=== PATIENT | male | born 1955 | race Hispanic/Latino ===

== ENCOUNTER 2020-11-09 12:32 | Emergency (ER) | payer BC, OTHER ==
[2020-11-09 13:32] LABS: BASOPHILS % (AUTO) 0.9 % (0.0-5.0); EOSINOPHILS % (AUTO) 1.6 % (0.0-8.0); HEMATOCRIT 41.7 % (42-54); LYMPHOCYTES % (AUTO) 23.5 % (21.0-51.0); MEAN CORPUSCULAR HEMOGLOBIN 33.2 pg (27.0-33.0); MEAN CORPUSCULAR HGB CONC 34.5 g/dL (32.0-36.0); MEAN CORPUSCULAR VOLUME 96.1 fL (79-99); MONOCYTES % (AUTO) 8.4 % (3.0-13.0); NEUTROPHILS % (AUTO) 64.9 % (40.0-77.0); PLATELET COUNT (AUTO) 234 K/uL (130-400); RED BLOOD CELL COUNT(AUTO) 4.34 MIL/uL (4.50-6.20); WHITE BLOOD COUNT (AUTO) 7.4 K/uL (4.8-10.8)
[2020-11-09 13:50] LABS: CREATININE 0.8 mg/dL (0.5-1.5)
[2020-11-09 13:55] LABS: ALBUMIN 4.2 g/dL (3.5-5.0); BILIRUBIN,TOTAL 0.7 mg/dL (0.2-1.0); TOTAL PROTEIN, SERUM 7.3 g/dL (6.0-8.3)
== END 2020-11-09 15:59 | disposition left against medical advice (07) ==
LOC: EDH 12:32
DX: R07.89 Other chest pain (principal); Z20.828 Contact with and (suspected) exposure to other viral communicable diseases; E11.9 Type 2 diabetes mellitus without complications; I10 Essential (primary) hypertension
CPT/HCPCS: 36415; 71045; 80053; 82550; 84484; 85025; 87426; 93005; 99285; U0003

== ENCOUNTER 2023-05-14 07:14 | Day surgery (SDC) | payer OTHER ==
[2023-05-10 14:07] LABS: BASOPHILS % (AUTO) 0.9 % (0.0-5.0); EOSINOPHILS % (AUTO) 2.1 % (0.0-8.0); HEMATOCRIT 45.9 % (42-54); LYMPHOCYTES % (AUTO) 17.8 % (21.0-51.0); MEAN CORPUSCULAR HEMOGLOBIN 32.3 pg (27.0-33.0); MEAN CORPUSCULAR HGB CONC 32.5 g/dL (32.0-36.0); MEAN CORPUSCULAR VOLUME 99.6 fL (79-99); MONOCYTES % (AUTO) 8.2 % (3.0-13.0); NEUTROPHILS % (AUTO) 70.6 % (40.0-77.0); PLATELET COUNT (AUTO) 223 K/uL (130-400); RED BLOOD CELL COUNT(AUTO) 4.61 MIL/uL (4.50-6.20); RED CELL DISTRIBUTION WIDTH 12.7 % (11.0-15.5); WHITE BLOOD COUNT (AUTO) 8.1 K/uL (4.8-10.8)
[2023-05-10 14:08] LABS: APPEARANCE,URINE CLEAR (CLEAR); BILIRUBIN,URINE NEGATIVE (NEGATIVE); COLOR,URINE LIGHT-YELLOW (YELLOW); GLUCOSE, URINE (UA) >=1000 mg/dL (NEGATIVE); KETONES,URINE 5 mg/dL (NEGATIVE); LEUKOCYTE ESTERASE ,URINE NEGATIVE Leu/uL (NEGATIVE); NITRATE,URINE NEGATIVE (NEGATIVE); OCCULT BLOOD,URINE NEGATIVE (NEGATIVE); PROTEIN,URINE NEGATIVE (NEGATIVE); UROBILINOGEN,URINE 0.2 mg/dL (0.2-1.0)
[2023-05-10 14:17] LABS: RBC,URINE 0-1 /HPF (0-1); WBC,URINE 0-1 /HPF (0-1)
[2023-05-10 14:18] LABS: INR 0.94 (0.85-1.15); PROTHROMBIN TIME 10.9 SEC (9.6-11.6)
[2023-05-10 14:20] LABS: PARTIAL THROMBOPLASTIN TIME 26.8 SEC (26.3-35.5)
[2023-05-10 14:24] VITALS: BP 162/72
[2023-05-10 14:28] LABS: CREATININE 1.1 mg/dL (0.5-1.5)
[2023-05-10 14:39] LABS: B-TYPE NATRIURETIC PEPTIDE 30 pg/mL (0-100)
[~2023-05-14] VITALS: Ht 167.6 cm; Wt 83.0 kg
[2023-05-14] VITALS (10 sets, daily range): BP systolic 104–136; BP diastolic 61–74
[~2023-05-14 07:14] MED LIST: ASPI-1197 PO; BRIM5DRO5 OP; CARB15DR OP; DORZ10DR19 OP; EMPA25TA PO; GLIP5POW MC; KETO-100 OP; LISI10TA24 PO; MELO-108 PO; METF-446 PO; METO-408 PO; MULT-1203 PO; NITR0.4T50 SL; PIOG45TA64 PO; ROSU20TA73 PO
[2023-05-14] MEDS ORDERED: MIDAZOLAM HCL 1 MG/ML 2ML VIAL ONE (08:24)
[2023-05-14] MEDS ORDERED: LIDOCAINE HCL 400MG/20ML VIAL ONE (08:24)
[2023-05-14] MEDS ORDERED: FENTANYL CITRATE PF 50 MCG/1 ML 2ML VIAL ONE (08:25)
[2023-05-14] MEDS ORDERED: IOHEXOL-350 50ML VIAL IV ONE (08:25)
[2023-05-14] MEDS ORDERED: IOHEXOL 350 MG/ML 100ML INFUS..BTL IV ONE (08:25)
[2023-05-14] MEDS ORDERED: NITROGLYCERIN 50MG VIAL ONE (08:25)
[2023-05-14] MEDS ORDERED: BIVALIRUDIN 250 MG/VIAL IV ONE (09:32)
[2023-05-14] MEDS ORDERED: GLUCAGON 1MG KIT 1 MG ML IM PRN (10:00)
[2023-05-14] MEDS ORDERED: DEXTROSE 50%-WATER 50 ML DISP.SYRIN IV PRN (10:00)
[2023-05-14] MEDS ORDERED: 0.9%NACL 1000ML 1,000 ML IV SCH (10:00)
[2023-05-14] MEDS ORDERED: INSULIN HUMULIN R 100 UNIT/ML 3ML SQ SCH ×2 (11:30)
== END 2023-05-14 13:40 | disposition home or self-care (01) ==
LOC: DAH 07:14
PROVIDERS: ATTEND Internal Medicine Cardiovascular Disease
DX: I25.119 Atherosclerotic heart disease of native coronary artery with unspecified angina pectoris (principal); T82.855A Stenosis of coronary artery stent, initial encounter; I10 Essential (primary) hypertension; E78.5 Hyperlipidemia, unspecified; E11.59 Type 2 diabetes mellitus with other circulatory complications; Z79.899 Other long term (current) drug therapy; Z95.5 Presence of coronary angioplasty implant and graft; Z79.01 Long term (current) use of anticoagulants; Z79.84 Long term (current) use of oral hypoglycemic drugs; Z79.82 Long term (current) use of aspirin; Y83.8 Other surgical procedures as the cause of abnormal reaction of the patient, or of later complication, without mention of misadventure at the time of the procedure; Y92.89 Other specified places as the place of occurrence of the external cause
CPT/HCPCS: 80048; 83880; 85025; 85610; 85730; 81001; 36415; 71045; 93005; 93458; 82948 ×2; J1815; C1894 ×2; C1760; J3010; J3490 ×2; J2250; J1644; Q9967 ×2; A4215; A4222; A4221; A4663; A4216; A4606; Q9965; A4223 ×3; 96360; 96361; 99156; 99157; J0583

== ENCOUNTER 2023-06-08 09:00 | Inpatient (IN) | payer OTHER ==
[~2023-06-08] VITALS: Ht 167.6 cm; Wt 80.7 kg
[2023-06-08 10:43] VITALS: BP 148/72; PULSE 73; RESP 16
[2023-06-08 10:52] LABS: BASOPHILS # (AUTO) 0.07 K/uL (0.00-0.20); BASOPHILS % (AUTO) 0.9 % (0.0-5.0); EOSINOPHILS # (AUTO) 0.17 K/uL (0.00-0.70); EOSINOPHILS % (AUTO) 2.3 % (0.0-8.0); HEMATOCRIT 45.9 % (42-54); IMMATURE GRANULOCYTE ABSOLUTE 0.08 K/uL (0-1); LYMPHOCYTES # (AUTO) 1.6 K/uL (1.0-4.8); MEAN CORPUSCULAR HEMOGLOBIN 32.4 pg (27.0-33.0); MEAN CORPUSCULAR HGB CONC 32.2 g/dL (32.0-36.0); MEAN CORPUSCULAR VOLUME 100.4 fL (79-99); MONOCYTES # (AUTO) 0.6 K/uL (0.1-1.0); MONOCYTES % (AUTO) 8.7 % (3.0-13.0); NEUTROPHILS # (AUTO) 4.9 K/uL (1.8-7.7); PLATELET COUNT (AUTO) 224 K/uL (130-400); RED BLOOD CELL COUNT(AUTO) 4.57 MIL/uL (4.50-6.20); RED CELL DISTRIBUTION WIDTH 13.1 % (11.0-15.5); WHITE BLOOD COUNT (AUTO) 7.4 K/uL (4.8-10.8)
[2023-06-08 11:02] LABS: HEMOGLOBIN A1C 10.3 % (4.0-6.0)
[2023-06-08 11:07] LABS: INR 0.93 (0.85-1.15); PROTHROMBIN TIME 10.4 SEC (9.6-11.6)
[2023-06-08 11:09] LABS: CREATININE 1.1 mg/dL (0.5-1.5); PARTIAL THROMBOPLASTIN TIME 27.6 SEC (26.3-35.5); POTASSIUM 4.9 mmol/L (3.5-5.1)
[2023-06-08 11:10] LABS: ALBUMIN 3.9 g/dL (3.5-5.0); BILIRUBIN,TOTAL 0.6 mg/dL (0.2-1.0); TOTAL PROTEIN, SERUM 7.2 g/dL (6.0-8.3)
[2023-06-08 11:18] LABS: B-TYPE NATRIURETIC PEPTIDE 24 pg/mL (0-100)
[2023-06-08 12:24] LABS: ABG BASE EXCESS -0.1 mmol/L (-2.0-3.0); ABG HCO3 24.8 mmol/L (21.0-28.0); ABG OXYGEN SATURATION 95.7 % (95.0-99.0); ABG PCO2 41 mmHg (35-48); ABG PH 7.397 (7.35-7.450); DEVICE COMMENT RAM RN RR; PO2, ARTERIAL BG 79.6 mmHg (83.0-108.0); VENT MODE, BG RA (ROOM AIR)
[2023-06-11] VITALS (27 sets, daily range): BP systolic 111–156; BP diastolic 50–78; PULSE 77–103; RESP 9–19; TEMP 97.7; O2SAT 98–100
[2023-06-11] MEDS ORDERED: EPINEPHRINE PF 1MG (1:1,000) 10 MG in 0.9% NACL 250ML 240 ML IV PRN ×2 (09:00→16:00)
[2023-06-11] MEDS ORDERED: NOREPINEPHRINE BITARTRATE 8 MG in DEXTROSE 5%-WATER 250 ML IV PRN ×2 (09:00→16:00)
[2023-06-11] MEDS ORDERED: AMINOCAPROIC ACID 5,000MG VIAL 15,000 MG in 0.9% NACL 500ML IV.SOLN 420 ML IV PRN (09:00)
[2023-06-11] MEDS ORDERED: NOREPINEPHRINE BITARTRATE 8 MG in 0.9% NACL 250ML 250 ML IV PRN (10:00)
[2023-06-11] MEDS ORDERED: 0.9%NACL 1000ML 1,000 ML IV ONE (10:14)
[2023-06-11] MEDS: CEFAZOLIN SODIUM 2 GM VIAL ONE ×2 (10:46→15:20)
[2023-06-11] MEDS ORDERED: CEFAZOLIN SODIUM 1 GM VIAL ONE (10:47)
[2023-06-11] MEDS ORDERED: PAPAVERINE HCL 30 MG/ML 2ML VIAL ONE (10:48)
[2023-06-11] MEDS ORDERED: METO-409 PO (10:59)
[2023-06-11] MEDS ORDERED: NICARDIPINE 25MG INJ IV ONE (12:13)
[2023-06-11] MEDS ORDERED: SODIUM BICARB 8.4% 50ML SYRINGE IVP ONE (12:17)
[2023-06-11] MEDS ORDERED: HEPARIN 10,000 UNIT/10ML (1,000 UNIT/ML) VIAL IV ONE (12:17)
[2023-06-11] MEDS ORDERED: ESMOLOL HCL 10 MG/ML 10 ML VIAL ONE (12:25)
[2023-06-11] MEDS ORDERED: EPINEPHRINE PF 1MG (1:1,000) 1 MG/ML AMP ONE (12:25)
[2023-06-11] MEDS ORDERED: HEPARIN 10,000 UNIT/10ML (1,000 UNIT/ML) VIAL ONE ×2 (12:25→16:41)
[2023-06-11] MEDS ORDERED: NOREPINEPHRINE BITARTRATE 1 MG/1 ML ML IV ONE (12:25)
[2023-06-11] MEDS ORDERED: FENTANYL CITRATE PF 50 MCG/1 ML 20ML VIAL IJ ONE (12:25)
[2023-06-11] MEDS ORDERED: AMINOCAPROIC ACID 5,000MG VIAL ONE (12:25)
[2023-06-11] MEDS ORDERED: PROTAMINE SULFATE 10 MG/ML 25ML VIAL IV ONE (12:25)
[2023-06-11] MEDS ORDERED: LIDOCAINE PF 100MG/5ML (2%) SYRINGE 5ML ONE (12:25)
[2023-06-11] MEDS ORDERED: SODIUM BICARB 50MEQ 50ML VIAL 150 ML ONE (12:25)
[2023-06-11] MEDS ORDERED: MIDAZOLAM HCL 1 MG/ML 2ML VIAL ONE (12:26)
[2023-06-11] MEDS ORDERED: ROCURONIUM 10MG/1ML SYR 10 MG/ML ML ONE (12:26)
[2023-06-11] MEDS ORDERED: PROPOFOL 10 MG/ML 20ML VIAL IV ONE (12:26)
[2023-06-11] MEDS ORDERED: KETAMINE 50MG/ML SYRINGE 50 MG/ML DISP.SYRIN ONE ×2 (12:28→18:01)
[2023-06-11] MEDS ORDERED: ACETAMINOPHEN 325 MG TAB PO PRN ×2 (13:30→16:00)
[2023-06-11] MEDS ORDERED: MAGNESIUM HYDROXIDE 30 ML/UDCUP PO PRN (13:30)
[2023-06-11] MEDS ORDERED: KETOTIFEN FUMARATE OP PRN (15:00)
[2023-06-11] MEDS ORDERED: NITROGLYCERIN 50MG/D5W 250ML 250 BOT IV SCH (16:00)
[2023-06-11] MEDS ORDERED: DEXTROSE 50%-WATER 50 ML DISP.SYRIN IV PRN (16:00)
[2023-06-11] MEDS ORDERED: 0.9%NACL 1000ML 1,000 ML IV SCH (16:00)
[2023-06-11] MEDS ORDERED: MORPHINE 2 MG SYG IV PRN (16:00)
[2023-06-11] MEDS ORDERED: TRAMADOL HCL 50 MG TABLET PO PRN (16:00)
[2023-06-11] MEDS ORDERED: INSULIN REGULAR, HUMAN 3ML 100 UNIT in 0.9%NACL 100ML 99 ML IV SCH ×2 (16:00)
[2023-06-11] MEDS ORDERED: 0.9% NACL 500ML IV.SOLN 500 ML IV SCH (16:00)
[2023-06-11] MEDS ORDERED: PROPOFOL 1000 MG/100 ML 100 ML IV PRN (16:00)
[2023-06-11] MEDS ORDERED: 0.9%NACL 10ML VIAL IVP PRN (16:00)
[2023-06-11] MEDS ORDERED: GLUCAGON 1MG KIT 1 MG ML IM PRN (16:00)
[2023-06-11] MEDS ORDERED: AMINOCAPROIC ACID 5,000MG VIAL 15,000 MG in 0.9% NACL 250ML 250 ML IV SCH (16:00)
[2023-06-11] MEDS ORDERED: MORPHINE 4 MG SYG IV PRN (16:00)
[2023-06-11] MEDS ORDERED: ALBUMIN (HUMAN) 5% 250 ML IV PRN (16:00)
[2023-06-11] MEDS ORDERED: ACETAMINOPHEN 650 MG SUPPOSITORY RC PRN (16:00)
[2023-06-11] MEDS ORDERED: POTASSIUM PHOS 15 mMOL+NS250ML 250 ML IV PRN (16:00)
[2023-06-11] MEDS ORDERED: AMIODARONE 150MG VIAL ONE (16:51)
[2023-06-11] MEDS ORDERED: ASPIRIN 81MG CHEW TAB NG ONE (17:00)
[2023-06-11] MEDS ORDERED: SODIUM BICARB 50MEQ 50ML VIAL 200 ML ONE (17:58)
[2023-06-11 18:28] LABS: ABG HCO3 23.4 mmol/L (21.0-28.0); ABG OXYGEN SATURATION 98.7 % (95.0-99.0); ABG PCO2 47 mmHg (35-48); ABG PH 7.313 (7.35-7.450); CARBON MONOXIDE 0.7; HHb 1.3; PO2, ARTERIAL BG 158.8 mmHg (83.0-108.0); VENT MODE, BG SIMV PS10 (ROOM AIR)
[2023-06-11 18:35] LABS: HEMATOCRIT 38.3 % (42-54); MEAN CORPUSCULAR HEMOGLOBIN 31.5 pg (27.0-33.0); MEAN CORPUSCULAR HGB CONC 31.9 g/dL (32.0-36.0); RED BLOOD CELL COUNT(AUTO) 3.87 MIL/uL (4.50-6.20); RED CELL DISTRIBUTION WIDTH 13.3 % (11.0-15.5); WHITE BLOOD COUNT (AUTO) 21.8 K/uL (4.8-10.8)
[2023-06-11 18:46] LABS: INR 1.03 (0.85-1.15); PROTHROMBIN TIME 11.9 SEC (9.6-11.6)
[2023-06-11 18:47] LABS: PARTIAL THROMBOPLASTIN TIME 24.7 SEC (26.3-35.5)
[2023-06-11 18:48] LABS: CREATININE 1.1 mg/dL (0.5-1.5); MAGNESIUM 1.4 mg/dL (1.80-2.40); PHOSPHORUS 5.4 mg/dL (2.5-4.9)
[2023-06-11] MEDS: SODIUM BICARB 50MEQ 50ML VIAL IV PRN ×2 (19:02→20:51)
[2023-06-11] MEDS: POTASSIUM CHLORIDE 20MEQ/100ML 100 ML IV PRN ×4 (19:03→22:43)
[2023-06-11 19:25] LABS: ABG BASE EXCESS 0.6 mmol/L (-2.0-3.0); ABG HCO3 24.5 mmol/L (21.0-28.0); ABG OXYGEN SATURATION 97.6 % (95.0-99.0); ABG PCO2 37 mmHg (35-48); ABG PH 7.438 (7.35-7.450); CARBON MONOXIDE 0.7; HHb 2.4; PO2, ARTERIAL BG 104.2 mmHg (83.0-108.0); VENT MODE, BG SIMV PS10 (ROOM AIR)
[2023-06-11] MEDS: TRAMADOL HCL 50 MG TABLET PO PRN (19:39)
[2023-06-11] MEDS: DOCUSATE SODIUM 100 MG CAP PO SCH (19:40)
[2023-06-11] MEDS: ATORVASTATIN 40 MG TABLET PO SCH (19:40)
[2023-06-11 20:28] LABS: ABG BASE EXCESS -1.2 mmol/L (-2.0-3.0); ABG HCO3 22.7 mmol/L (21.0-28.0); ABG OXYGEN SATURATION 98.6 % (95.0-99.0); ABG PCO2 35 mmHg (35-48); ABG PH 7.424 (7.35-7.450); CARBON MONOXIDE 0.8; DEVICE COMMENT ALINE; HHb 1.4; PO2, ARTERIAL BG 141.8 mmHg (83.0-108.0); VENT MODE, BG SIMV PS10 (ROOM AIR)
[2023-06-11] MEDS: CALCIUM GLUC 1GM 1 GM in 0.9%NACL 50ML 50 ML IV PRN ×2 (20:49→21:28)
[2023-06-11] MEDS: DORZOLAMIDE HCL OP SCH (21:00)
[2023-06-11] MEDS ORDERED: NON-FORMULARY MEDICATION 1 EACH (Carboxymethylcellulose Sodium (Refresh Tears) 1 DROP) OP SCH (21:00)
[2023-06-11] MEDS: MAGNESIUM 2GM PREMIX 50ML 50 ML IV PRN (21:04)
[2023-06-11] MEDS: CEFAZOLIN SODIUM 2 GM VIAL IVPB SCH (21:06)
[2023-06-11] MEDS: FAMOTIDINE 20MG VIAL IV SCH (21:07)
[2023-06-11 21:25] LABS: ABG BASE EXCESS 0.6 mmol/L (-2.0-3.0); ABG HCO3 24.2 mmol/L (21.0-28.0); ABG OXYGEN SATURATION 98.8 % (95.0-99.0); ABG PCO2 36 mmHg (35-48); ABG PH 7.445 (7.35-7.450); HHb 1.2; PO2, ARTERIAL BG 147.3 mmHg (83.0-108.0); VENT MODE, BG SIMV PS10 (ROOM AIR)
[2023-06-11] MEDS: ARTIFICIAL TEARS 3.5 GM OINTMENT OP SCH (21:29)
[2023-06-11] MEDS: BRIMONIDINE TARTRATE 0.2% 5 ML BOTTLE OP SCH (21:29)
[2023-06-11 22:36] LABS: ABG BASE EXCESS 0.6 mmol/L (-2.0-3.0); ABG HCO3 24.2 mmol/L (21.0-28.0); ABG PCO2 36 mmHg (35-48); ABG PH 7.447 (7.35-7.450); CARBON MONOXIDE 0.9; PO2, ARTERIAL BG 87.5 mmHg (83.0-108.0); VENT MODE, BG SIMV PS10 (ROOM AIR)
[2023-06-11] MEDS: ONDANSETRON 4MG INJ IV PRN (22:43)
[2023-06-11 23:46] LABS: ABG BASE EXCESS 0.7 mmol/L (-2.0-3.0); ABG HCO3 23.7 mmol/L (21.0-28.0); ABG OXYGEN SATURATION 97.7 % (95.0-99.0); ABG PCO2 34 mmHg (35-48); ABG PH 7.467 (7.35-7.450); CARBON MONOXIDE 1.1; HHb 2.3; PO2, ARTERIAL BG 96.9 mmHg (83.0-108.0); VENT MODE, BG SIMV PS10 (ROOM AIR)
[2023-06-12] VITALS (56 sets, daily range): BP systolic 112–177; BP diastolic 45–97; PULSE 76–104; RESP 13–32; TEMP 98.3–98.5; O2SAT 94–99
[2023-06-12 00:58] LABS: ABG BASE EXCESS -0.2 mmol/L (-2.0-3.0); ABG HCO3 24.7 mmol/L (21.0-28.0); ABG PCO2 41 mmHg (35-48); ABG PH 7.398 (7.35-7.450); CARBON MONOXIDE 0.8; HHb 3.9; PO2, ARTERIAL BG 83.9 mmHg (83.0-108.0); VENT MODE, BG COOL MIST AEROS (ROOM AIR)
[2023-06-12] MEDS: POTASSIUM CHLORIDE 20MEQ/100ML 100 ML IV PRN ×2 (01:15→17:04)
[2023-06-12 04:31] LABS: HEMATOCRIT 40.8 % (42-54); MEAN CORPUSCULAR HEMOGLOBIN 32.1 pg (27.0-33.0); MEAN CORPUSCULAR HGB CONC 32.4 g/dL (32.0-36.0); MEAN CORPUSCULAR VOLUME 99.3 fL (79-99); RED BLOOD CELL COUNT(AUTO) 4.11 MIL/uL (4.50-6.20); RED CELL DISTRIBUTION WIDTH 13.7 % (11.0-15.5); WHITE BLOOD COUNT (AUTO) 12.7 K/uL (4.8-10.8)
[2023-06-12] MEDS: CEFAZOLIN SODIUM 2 GM VIAL IVPB SCH ×2 (04:35→12:47)
[2023-06-12] MEDS: TRAMADOL HCL 50 MG TABLET PO PRN ×2 (04:35→09:34)
[2023-06-12 04:45] LABS: INR 0.93 (0.85-1.15); PROTHROMBIN TIME 10.7 SEC (9.6-11.6)
[2023-06-12 04:47] LABS: PARTIAL THROMBOPLASTIN TIME 23.7 SEC (26.3-35.5)
[2023-06-12 04:53] LABS: CREATININE 0.9 mg/dL (0.5-1.5); MAGNESIUM 1.8 mg/dL (1.80-2.40); PHOSPHORUS 4.8 mg/dL (2.5-4.9); POTASSIUM 4.3 mmol/L (3.5-5.1)
[2023-06-12] MEDS ORDERED: CALCIUM GLUC 1GM/10ML VIAL ONE (04:59)
[2023-06-12 05:07] LABS: ABG BASE EXCESS -1.5 mmol/L (-2.0-3.0); ABG HCO3 23.4 mmol/L (21.0-28.0); ABG OXYGEN SATURATION 96.7 % (95.0-99.0); ABG PCO2 40 mmHg (35-48); ABG PH 7.381 (7.35-7.450); HHb 3.3; PO2, ARTERIAL BG 90.8 mmHg (83.0-108.0); VENT MODE, BG N.C 4 LPM (ROOM AIR)
[2023-06-12] MEDS: MAGNESIUM 2GM PREMIX 50ML 50 ML IV PRN ×2 (05:56→17:04)
[2023-06-12] MEDS: ONDANSETRON 4MG INJ IV PRN ×2 (06:24→12:47)
[2023-06-12 07:55] LABS: ABG BASE EXCESS -1.3 mmol/L (-2.0-3.0); ABG HCO3 24.6 mmol/L (21.0-28.0); ABG OXYGEN SATURATION 96.8 % (95.0-99.0); ABG PCO2 46 mmHg (35-48); CARBON MONOXIDE 0.9; HHb 3.2; VENT MODE, BG 2L NC (ROOM AIR)
[2023-06-12] MEDS: MULTIVITAMIN TABLET PO SCH (08:13)
[2023-06-12] MEDS: FUROSEMIDE 20MG VIAL IV SCH ×2 (08:13→20:10)
[2023-06-12] MEDS: DOCUSATE SODIUM 100 MG CAP PO SCH ×2 (08:13→20:11)
[2023-06-12] MEDS: SODIUM BICARB 50MEQ 50ML VIAL IV PRN (08:13)
[2023-06-12] MEDS: FAMOTIDINE 20MG VIAL IV SCH ×2 (08:13→20:10)
[2023-06-12] MEDS: ASPIRIN 81 MG EC TAB PO SCH (08:13)
[2023-06-12] MEDS: BRIMONIDINE TARTRATE 0.2% 5 ML BOTTLE OP SCH ×2 (08:14→20:33)
[2023-06-12] MEDS ORDERED: NON-FORMULARY MEDICATION 1 EACH (Multivitamin (Multi Vitamin Daily) 1 EACH) PO SCH (09:00)
[2023-06-12] MEDS: DORZOLAMIDE HCL OP SCH ×2 (09:00→20:53)
[2023-06-12 16:53] LABS: MAGNESIUM 1.8 mg/dL (1.80-2.40); POTASSIUM 3.9 mmol/L (3.5-5.1)
[2023-06-12] MEDS: ATORVASTATIN 40 MG TABLET PO SCH (20:11)
[2023-06-12] MEDS: ARTIFICIAL TEARS 3.5 GM OINTMENT OP SCH (20:53)
[2023-06-13] VITALS (31 sets, daily range): BP systolic 112–157; BP diastolic 57–90; PULSE 78–113; RESP 16–30; O2SAT 95–98
[2023-06-13 06:01] LABS: HEMATOCRIT 33.3 % (42-54); MEAN CORPUSCULAR HEMOGLOBIN 32.2 pg (27.0-33.0); MEAN CORPUSCULAR HGB CONC 31.5 g/dL (32.0-36.0); MEAN CORPUSCULAR VOLUME 102.1 fL (79-99); RED BLOOD CELL COUNT(AUTO) 3.26 MIL/uL (4.50-6.20); RED CELL DISTRIBUTION WIDTH 13.9 % (11.0-15.5); WHITE BLOOD COUNT (AUTO) 13.4 K/uL (4.8-10.8)
[2023-06-13 06:17] LABS: CREATININE 0.7 mg/dL (0.5-1.5)
[2023-06-13] MEDS: TRAMADOL HCL 50 MG TABLET PO PRN ×2 (06:43→19:49)
[2023-06-13 07:14] LABS: POTASSIUM 3.8 mmol/L (3.5-5.1)
[2023-06-13] MEDS: FAMOTIDINE 20MG VIAL IV SCH ×2 (07:56→19:48)
[2023-06-13] MEDS: FUROSEMIDE 20 MG TABLET PO SCH ×2 (07:56→17:33)
[2023-06-13] MEDS: ASPIRIN 81 MG EC TAB PO SCH (07:57)
[2023-06-13] MEDS: DOCUSATE SODIUM 100 MG CAP PO SCH ×2 (07:57→19:48)
[2023-06-13] MEDS: MULTIVITAMIN TABLET PO SCH (07:57)
[2023-06-13] MEDS: BRIMONIDINE TARTRATE 0.2% 5 ML BOTTLE OP SCH ×2 (07:59→19:51)
[2023-06-13] MEDS: DORZOLAMIDE HCL OP SCH ×2 (08:00→19:49)
[2023-06-13] MEDS ORDERED: METOPROLOL TARTRATE 25 MG TAB PO SCH ×2 (09:00→21:00)
[2023-06-13] MEDS: INSULIN HUMULIN R 100 UNIT/ML 3ML SQ SCH ×3 (11:43→20:48)
[2023-06-13] MEDS: METOPROLOL TARTRATE 25 MG TAB PO SCH (19:48)
[2023-06-13] MEDS: ATORVASTATIN 40 MG TABLET PO SCH (19:48)
[2023-06-13] MEDS: ARTIFICIAL TEARS 3.5 GM OINTMENT OP SCH (19:50)
[2023-06-14] VITALS (8 sets, daily range): BP systolic 101–147; BP diastolic 65–79; PULSE 61–110; RESP 18–20; O2SAT 95–100
[2023-06-14 03:44] LABS: MEAN CORPUSCULAR HEMOGLOBIN 32.4 pg (27.0-33.0); MEAN CORPUSCULAR HGB CONC 32.6 g/dL (32.0-36.0); MEAN CORPUSCULAR VOLUME 99.2 fL (79-99); RED BLOOD CELL COUNT(AUTO) 3.83 MIL/uL (4.50-6.20); RED CELL DISTRIBUTION WIDTH 13.4 % (11.0-15.5); WHITE BLOOD COUNT (AUTO) 13.5 K/uL (4.8-10.8)
[2023-06-14 03:52] LABS: CREATININE 1.1 mg/dL (0.5-1.5); POTASSIUM 3.3 mmol/L (3.5-5.1)
[2023-06-14] MEDS ORDERED: POTASSIUM CHLORIDE 10% ELIXIR 20 MEQ/15 ML UDCUP PO PRN (05:00)
[2023-06-14] MEDS: KCL 20 MEQ ERTAB PO PRN ×3 (05:25→11:10)
[2023-06-14] MEDS: INSULIN HUMULIN R 100 UNIT/ML 3ML SQ SCH ×4 (05:27→21:27)
[2023-06-14] MEDS: BRIMONIDINE TARTRATE 0.2% 5 ML BOTTLE OP SCH ×2 (08:54→21:31)
[2023-06-14] MEDS: FUROSEMIDE 20 MG TABLET PO SCH ×2 (08:55→17:20)
[2023-06-14] MEDS: MULTIVITAMIN TABLET PO SCH (08:55)
[2023-06-14] MEDS: METOPROLOL TARTRATE 25 MG TAB PO SCH ×2 (08:55→21:00)
[2023-06-14] MEDS: ASPIRIN 81 MG EC TAB PO SCH (08:55)
[2023-06-14] MEDS: DOCUSATE SODIUM 100 MG CAP PO SCH ×2 (08:55→21:25)
[2023-06-14] MEDS: FAMOTIDINE 20MG VIAL IV SCH (08:55)
[2023-06-14] MEDS: ENOXAPARIN SODIUM 30 MG/0.3 ML SQ SCH (08:56)
[2023-06-14] MEDS: DORZOLAMIDE HCL OP SCH ×2 (08:56→21:00)
[2023-06-14] MEDS: LACTULOSE 20 GM/30 ML UDCUP PO PRN (09:04)
[2023-06-14] MEDS: ATORVASTATIN 40 MG TABLET PO SCH (21:25)
[2023-06-14] MEDS: FAMOTIDINE 20MG TAB PO SCH (21:25)
[2023-06-14] MEDS: ARTIFICIAL TEARS 3.5 GM OINTMENT OP SCH (21:32)
[2023-06-15] VITALS (9 sets, daily range): BP systolic 105–140; BP diastolic 57–82; PULSE 89–107; RESP 15–18; O2SAT 95–97
[2023-06-15 03:44] LABS: HEMATOCRIT 35.4 % (42-54); MEAN CORPUSCULAR HEMOGLOBIN 31.8 pg (27.0-33.0); MEAN CORPUSCULAR HGB CONC 32.8 g/dL (32.0-36.0); RED BLOOD CELL COUNT(AUTO) 3.65 MIL/uL (4.50-6.20); RED CELL DISTRIBUTION WIDTH 13.2 % (11.0-15.5)
[2023-06-15 03:53] LABS: CREATININE 0.8 mg/dL (0.5-1.5); POTASSIUM 3.2 mmol/L (3.5-5.1)
[2023-06-15] MEDS: KCL 20 MEQ ERTAB PO PRN ×3 (05:43→17:10)
[2023-06-15] MEDS: INSULIN HUMULIN R 100 UNIT/ML 3ML SQ SCH ×4 (05:59→21:04)
[2023-06-15] MEDS: DORZOLAMIDE HCL OP SCH ×2 (09:00→21:00)
[2023-06-15] MEDS: BRIMONIDINE TARTRATE 0.2% 5 ML BOTTLE OP SCH ×2 (09:00→21:05)
[2023-06-15] MEDS: ASPIRIN 81 MG EC TAB PO SCH (10:03)
[2023-06-15] MEDS: DOCUSATE SODIUM 100 MG CAP PO SCH ×2 (10:03→21:00)
[2023-06-15] MEDS: FUROSEMIDE 20 MG TABLET PO SCH ×2 (10:04→16:55)
[2023-06-15] MEDS: METOPROLOL TARTRATE 25 MG TAB PO SCH ×2 (10:04→21:00)
[2023-06-15] MEDS: MULTIVITAMIN TABLET PO SCH (10:04)
[2023-06-15] MEDS: FAMOTIDINE 20MG TAB PO SCH ×2 (10:04→21:00)
[2023-06-15] MEDS: ENOXAPARIN SODIUM 30 MG/0.3 ML SQ SCH (10:17)
[2023-06-15] MEDS: ATORVASTATIN 40 MG TABLET PO SCH (21:00)
[2023-06-15] MEDS ORDERED: 0.9%NACL 50ML IV SCH (21:00)
[2023-06-15] MEDS: ARTIFICIAL TEARS 3.5 GM OINTMENT OP SCH (21:00)
[2023-06-15] MEDS: ZOSYN 3.375GM +NS 50ML IVPB SCH (21:01)
[2023-06-15] MEDS ORDERED: IPRATROPIUM/ALBUTEROL SULFATE 3 ML SOLUTION IH ONE (21:11)
[2023-06-16] VITALS (14 sets, daily range): BP systolic 117–143; BP diastolic 66–78; PULSE 80–109; RESP 16–18; O2SAT 96–98
[2023-06-16] MEDS: IPRATROPIUM/ALBUTEROL SULFATE 3 ML SOLUTION IH SCH ×4 (00:24→18:33)
[2023-06-16] MEDS: ZOSYN 3.375GM +NS 50ML IVPB SCH ×3 (04:29→18:07)
[2023-06-16 05:03] LABS: BASOPHILS # (AUTO) 0.05 K/uL (0.00-0.20); BASOPHILS % (AUTO) 0.8 % (0.0-5.0); EOSINOPHILS # (AUTO) 0.22 K/uL (0.00-0.70); EOSINOPHILS % (AUTO) 3.4 % (0.0-8.0); HEMATOCRIT 34.2 % (42-54); IMMATURE GRANULOCYTE ABSOLUTE 0.09 K/uL (0-1); LYMPHOCYTES # (AUTO) 1.6 K/uL (1.0-4.8); LYMPHOCYTES % (AUTO) 24.2 % (21.0-51.0); MEAN CORPUSCULAR HEMOGLOBIN 32.1 pg (27.0-33.0); MEAN CORPUSCULAR HGB CONC 33.3 g/dL (32.0-36.0); MEAN CORPUSCULAR VOLUME 96.3 fL (79-99); MONOCYTES # (AUTO) 0.8 K/uL (0.1-1.0); MONOCYTES % (AUTO) 11.6 % (3.0-13.0); NEUTROPHILS # (AUTO) 3.8 K/uL (1.8-7.7); NEUTROPHILS % (AUTO) 58.6 % (40.0-77.0); NUCLEATED RED BLOOD CELLS 0.5 % (0.0-0.19); PLATELET COUNT (AUTO) 249 K/uL (130-400); RED BLOOD CELL COUNT(AUTO) 3.55 MIL/uL (4.50-6.20); RED CELL DISTRIBUTION WIDTH 13.2 % (11.0-15.5); WHITE BLOOD COUNT (AUTO) 6.5 K/uL (4.8-10.8)
[2023-06-16 05:21] LABS: CREATININE 0.9 mg/dL (0.5-1.5); POTASSIUM 3.3 mmol/L (3.5-5.1)
[2023-06-16] MEDS: KCL 20 MEQ ERTAB PO PRN ×3 (05:46→21:00)
[2023-06-16] MEDS: INSULIN HUMULIN R 100 UNIT/ML 3ML SQ SCH ×4 (05:47→20:34)
[2023-06-16] MEDS: DOCUSATE SODIUM 100 MG CAP PO SCH ×2 (08:26→20:33)
[2023-06-16] MEDS: MULTIVITAMIN TABLET PO SCH (08:26)
[2023-06-16] MEDS: ENOXAPARIN SODIUM 30 MG/0.3 ML SQ SCH (08:26)
[2023-06-16] MEDS: FAMOTIDINE 20MG TAB PO SCH ×2 (08:26→20:32)
[2023-06-16] MEDS: LACTULOSE 20 GM/30 ML UDCUP PO PRN (08:26)
[2023-06-16] MEDS: FUROSEMIDE 20 MG TABLET PO SCH ×2 (08:27→16:29)
[2023-06-16] MEDS: METOPROLOL TARTRATE 25 MG TAB PO SCH ×2 (08:27→20:33)
[2023-06-16] MEDS: ASPIRIN 81 MG EC TAB PO SCH (08:27)
[2023-06-16] MEDS: BRIMONIDINE TARTRATE 0.2% 5 ML BOTTLE OP SCH ×2 (08:33→20:35)
[2023-06-16] MEDS: DORZOLAMIDE HCL OP SCH ×2 (08:33→20:36)
[2023-06-16] MEDS: ATORVASTATIN 40 MG TABLET PO SCH (20:33)
[2023-06-16] MEDS: ARTIFICIAL TEARS 3.5 GM OINTMENT OP SCH (20:36)
[2023-06-17] VITALS (7 sets, daily range): BP systolic 133–136; BP diastolic 76–81; PULSE 82–99; RESP 16–20; O2SAT 96–98
[2023-06-17] MEDS: IPRATROPIUM/ALBUTEROL SULFATE 3 ML SOLUTION IH SCH ×3 (00:10→11:47)
[2023-06-17] MEDS: ZOSYN 3.375GM +NS 50ML IVPB SCH ×2 (03:43→11:09)
[2023-06-17 04:00] LABS: BASOPHILS # (AUTO) 0.06 K/uL (0.00-0.20); BASOPHILS % (AUTO) 0.9 % (0.0-5.0); EOSINOPHILS # (AUTO) 0.19 K/uL (0.00-0.70); EOSINOPHILS % (AUTO) 2.8 % (0.0-8.0); HEMATOCRIT 32.4 % (42-54); IMMATURE GRANULOCYTE ABSOLUTE 0.09 K/uL (0-1); LYMPHOCYTES # (AUTO) 1.9 K/uL (1.0-4.8); MEAN CORPUSCULAR HEMOGLOBIN 32.3 pg (27.0-33.0); MEAN CORPUSCULAR HGB CONC 32.7 g/dL (32.0-36.0); MEAN CORPUSCULAR VOLUME 98.8 fL (79-99); MONOCYTES # (AUTO) 0.6 K/uL (0.1-1.0); MONOCYTES % (AUTO) 9.3 % (3.0-13.0); NEUTROPHILS # (AUTO) 3.9 K/uL (1.8-7.7); NEUTROPHILS % (AUTO) 57.7 % (40.0-77.0); NUCLEATED RED BLOOD CELLS 0.4 % (0.0-0.19); PLATELET COUNT (AUTO) 234 K/uL (130-400); RED BLOOD CELL COUNT(AUTO) 3.28 MIL/uL (4.50-6.20); RED CELL DISTRIBUTION WIDTH 13.4 % (11.0-15.5); WHITE BLOOD COUNT (AUTO) 6.8 K/uL (4.8-10.8)
[2023-06-17 04:17] LABS: CREATININE 0.9 mg/dL (0.5-1.5); POTASSIUM 3.7 mmol/L (3.5-5.1)
[2023-06-17] MEDS: INSULIN HUMULIN R 100 UNIT/ML 3ML SQ SCH ×2 (05:35→11:44)
[2023-06-17] MEDS: FAMOTIDINE 20MG TAB PO SCH (08:12)
[2023-06-17] MEDS: DOCUSATE SODIUM 100 MG CAP PO SCH (08:12)
[2023-06-17] MEDS: FUROSEMIDE 20 MG TABLET PO SCH (08:12)
[2023-06-17] MEDS: ASPIRIN 81 MG EC TAB PO SCH (08:12)
[2023-06-17] MEDS: METOPROLOL TARTRATE 25 MG TAB PO SCH (08:12)
[2023-06-17] MEDS: MULTIVITAMIN TABLET PO SCH (08:12)
[2023-06-17] MEDS: ENOXAPARIN SODIUM 30 MG/0.3 ML SQ SCH (08:12)
[2023-06-17] MEDS: BRIMONIDINE TARTRATE 0.2% 5 ML BOTTLE OP SCH (08:13)
[2023-06-17] MEDS: DORZOLAMIDE HCL OP SCH (08:13)
[2023-06-17] MEDS ORDERED: PIOGLITAZONE 45MG TAB PO SCH (09:00)
[2023-06-17] MEDS ORDERED: ATOR40TA69 PO (16:20)
[2023-06-17] MEDS ORDERED: FURO20TA6 PO (16:20)
[2023-06-17] MEDS ORDERED: AMOX-426 PO (16:20)
[2023-06-17] MEDS ORDERED: AEC81 PO (16:20)
[2023-06-17] MEDS ORDERED: EMPAGLIFLOZIN 25MG TABLET PO SCH (21:00)
[2023-06-17] MEDS ORDERED: METFORMIN HCL 500 MG TABLET PO SCH (21:00)
== END 2023-06-17 18:10 | disposition home or self-care (01) | DRG 235 ==
LOC: DAHIP 06-11 10:28 → 2CV 06-11 18:12 → 2CH 06-12 09:07 → 2AH 06-13 15:03
PROVIDERS: ADMIT Thoracic Surgery (Cardiothoracic Vascular Surgery); ATTEND Thoracic Surgery (Cardiothoracic Vascular Surgery)
PROC: 02100Z9 Bypass Coronary Artery, One Artery from Left Internal Mammary, Open Approach (ICD-10-PCS; principal; 2023-06-11 12:00)
PROC: 021109W Bypass Coronary Artery, Two Arteries from Aorta with Autologous Venous Tissue, Open Approach (ICD-10-PCS; 2023-06-11 12:00)
PROC: 06BQ4ZZ Excision of Left Saphenous Vein, Percutaneous Endoscopic Approach (ICD-10-PCS; 2023-06-11 12:00)
DX: I25.10 Atherosclerotic heart disease of native coronary artery without angina pectoris (principal); J18.9 Pneumonia, unspecified organism; E11.9 Type 2 diabetes mellitus without complications; Z20.822 Contact with and (suspected) exposure to COVID-19; E78.00 Pure hypercholesterolemia, unspecified; E87.70 Fluid overload, unspecified; I10 Essential (primary) hypertension; Z79.82 Long term (current) use of aspirin; Z79.899 Other long term (current) drug therapy
CPT/HCPCS: 36415; 36600; 71045; 80048; 80053; 80061; 82330; 82435; 82803; 82947; 82948; 83036; 83605; 83735; 83880; 84100; 84132; 84295; 85018; 85025; 85027; 85347; 85610; 85730; 86850; 86900; 86901; 86923; 87426; 87641; 93005; 93312; 93318; 93880; 94002; 94003; 94010; 94150; 94640; 94664; 94667; 94668; 97039; A4357; A7048; G0378; J0171; J0282; J0610; J0690; J1644; J1650; J1815; J1940; J2001; J2250; J2405; J2440; J2543; J2704; J2720; J3010; J3475; J3480; J3490; J7030; J7040; J7050; A4215; A4221; A4222; A4223; A4315; A4452; A4510; A4600; A4649; A4663; A4930; A5120; A6204; A6219; A6260; A7040; C1713; C1776; G0168